=== PATIENT | female | born 1945 | race Caucasian/White ===

== ENCOUNTER 2016-07-05 16:27 | Emergency (ER) | payer OTHER ==
[~2016-07-05] VITALS: Ht 154.9 cm; Wt 97.9 kg
[~2016-07-05 16:27] MED LIST: CALCIUM WITH VIT D PO; HYDROCODON-ACE1 EAC7 PO; NAPROSYN500 MG PO; VITAMIN B12-FO1 EACH PO; VITAMIN D32000 UNIT PO; [UNRECOGNIZED DRUG - OTHER] PO
[2016-07-05] MEDS ORDERED: MOBIC7.5 MG PO (20:18)
[2016-07-05 20:23] VITALS: BP 187/88
== END 2016-07-05 20:27 | disposition home or self-care (01) ==
LOC: RME 16:27 → EME 16:27 → RME 20:27
DX: M17.12 Unilateral primary osteoarthritis, left knee (principal); S83.422A Sprain of lateral collateral ligament of left knee, initial encounter; M16.12 Unilateral primary osteoarthritis, left hip; E78.5 Hyperlipidemia, unspecified; Z88.0 Allergy status to penicillin
CPT/HCPCS: 73502; 73564; 99281; 99284